=== PATIENT | male | born 1955 | race Caucasian/White ===

== ENCOUNTER → 2018-08-04 | Outpatient (CLI) | payer OTHER ==
[~2018-08-04] MED LIST: ASPIRIN325 PO; BENADRYL25 MG; COZAAR 50 MG TA50 M2; FISH OIL 1,001000 M2 PO; FLOMAX0.4 MG PO; FLONASE 0.05%50 MCG NASAL; LIPITOR 20 MG T20 M1 PO; METFORMIN HCL500 MG PO; PERCOCET 5-3251 EACH PO; TRILIPIX135 MG; VITAMIN D-32000 UNIT PO; ZYRTEC10 MG PO
== END ==
LOC: CAT 10:12
DX: Z13.6 Encounter for screening for cardiovascular disorders (principal); E78.00 Pure hypercholesterolemia, unspecified; I25.10 Atherosclerotic heart disease of native coronary artery without angina pectoris